=== PATIENT | male | born 1980 | race Caucasian/White ===

== ENCOUNTER 2023-01-08 15:45 | Outpatient (RCR) | payer MEDICAID, SELFPAY | END 2023-05-03 09:16 | disposition home or self-care (01) | PROVIDERS: PCP Family Medicine; Visit Provider Family Medicine | DX: M54.2 Cervicalgia (principal); S46.811A Strain of other muscles, fascia and tendons at shoulder and upper arm level, right arm, initial encounter; M25.511 Pain in right shoulder; G89.29 Other chronic pain; R29.3 Abnormal posture; Z51.89 Encounter for other specified aftercare | CPT/HCPCS: 97110; 97140; 97161 ==

== ENCOUNTER 2023-08-09 07:02 | Outpatient (CLI) | payer MEDICAID, SELFPAY ==
--- NOTE | 2023-08-09 07:15 | CRLHL7_ITS ---
For Patients: As a result of the Century Cures Act, medical imaging exams and procedure reports are released immediately into your electronic medical record. You may view this report before your referring provider. If you have questions, please contact your health care provider. INDICATION: Frontal headaches. Neurocysticercosis. TECHNIQUE: Brain MRI with contrast. The following sequences were obtained: Sagittal T1 weighted sequence. DWI and ADC mapping sequences. Axial FLAIR and RENATA T2 weighted sequences. Susceptibility weighted or GRE sequence. T1 weighted post-contrast sequence(s). 20 cc of Dotarem gadolinium based contrast agent was used. COMPARISON: Brain MRI from 01/05/2021. 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 It follows CSF on all pulse sequences. It measures 42 millimeters in AP dimension, 20 millimeters in TR dimension and 17 millimeters in CC dimension. Local mass effect upon the left greater than right olfactory gyri, as well as the left-sided supraorbital gyrus. No parenchymal brain edema. A tiny 4 millimeter T2 hypointense nodule within the inferior cyst abutting the left posterior olfactory groove is again noted. Subtle enhancement appears to be present on postcontrast imaging. No evidence of acute ischemia. No evidence of acute or chronic intracranial blood products. Minimal nonspecific FLAIR hyperintense foci scattered within the supratentorial white matter. No hydrocephalus or extra-axial collections. The pituitary gland, parasellar structures and optic chiasm are normal. Posterior fossa is normal. All the major intracranial vascular structures demonstrate normal flow-related signal. The orbital contents are normal. No calvarial or skull base marrow signal abnormality. Scattered minimal paranasal sinus mucosal thickening. No extracranial soft tissue findings. IMPRESSION: 1. Stable examination. 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 Tiny 4 millimeter nodule within the inferior portion of the cyst is unchanged as well. It does appear to exhibit subtle enhancement on today`s exam. 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 Neoplastic entities such as hemangioblastoma could also have this appearance. 2. No acute ischemia. No new lesions elsewhere within the brain. Dictated by Theron Aguirre MD @ 08/09/2023 9:45:08 AM (Electronically Signed)
== END 2023-08-09 07:03 | disposition home or self-care (01) ==
LOC: MRI 07:05
PROVIDERS: PCP Family Medicine; Visit Provider Family Medicine
DX: B69.0 Cysticercosis of central nervous system (principal); R51.9 Headache, unspecified
CPT/HCPCS: 70553; T1013; A9575

== ENCOUNTER 2023-09-10 10:22 | Emergency (ER) | payer MEDICAID, SELFPAY ==
[2023-09-10] VITALS (28 sets, daily range): BP systolic 121–166; BP diastolic 80–122; PULSE 68–185; RESP 18–22; TEMP 36.4; O2SAT 95–100; BMI 29.8
[2023-09-10] MEDS: 0.9 % SODIUM CHLORIDE 1000 ml 1,000 ML IV (11:00)
--- NOTE | 2023-09-10 11:00 | ED_ITS ---
HPI - General Adult General Chief complaint: Arrhythmia/Palpitations Stated complaint: Short of breath, fast heartbeat Time Seen by Provider: 09/10/23 10:52 History of Present Illness HPI narrative: as been dealing with headaches since june and saw dr suarez on wednesday. does have a neuro consult next week. today awoke at 0600 and felt tired, sob, mild chest pressure with a rapid heart rate. upon arrival noted to have a fib with RVR. last po was brfst at ~1000. never has had a hx of a fib. 42-year-old man presenting to the emergency department with complaint of some chest pressure and shortness of breath occurring about an hour prior to presentation. He had gone to work at [employer] and just was not feeling well. Is not reporting lightheadedness. No abdominal pain. On arrival EKG does show by my read atrial fibrillation. Nursing has already initiated IV fluids. Prior to this morning was not feeling short of breath in particular. Has not been experiencing edema. Only past medical is hypertension per his report. No personal or family history of cardiovascular disease/arrhythmias other than as prior mention. Related Data Home Medications Medication Instructions Recorded Confirmed amlodipine 5 mg tablet 5 mg PO DAILY 09/10/23 09/10/23 naproxen 500 mg tablet 500 mg PO BID 09/10/23 09/10/23 trazodone 50 mg tablet 50 mg PO QPM 09/10/23 09/10/23 Previous Rx's Medication Instructions Recorded apixaban 5 mg tablet (Eliquis) 5 mg PO BID #60 tabs 09/10/23 Allergies Allergy/AdvReac Type Severity Reaction Status Date / Time No Known Drug Allergies Allergy Verified 09/10/23 10:34 Review of Systems Status of ROS: Reports: 6 or more systems reviewed and unremarkable except as noted in History and below PFSH PFSH Social History Smoking Status: Never smoker Do you use any of these nicotine containing products: None Second hand tobacco smoke exposure: No How often do you have a drink containing alcohol: 2-4 times a month How many standard drinks containing alcohol do you have on a typical day: 5 or 6 How often do you have six or more drinks on one occasion: Weekly AUDIT-C Alcohol total score: 7 Non-prescribed substance use: denies use service: No Exam Narrative: Exam Narrative: Pleasant. Well-built. NAD but mildly anxious. Subtly labored perhaps in his breathing. Skin is warm and dry well-perfused extremities without edema. Lungs are clear. Heart is tachycardic in rate with an irregularly irregular rhythm. Abdomen is little protuberant soft nontender. Const: Vital Signs, click to edit/add: Vital Signs - 24 hr 09/10/23 10:36 09/10/23 11:03 09/10/23 11:04 Temperature 97.5 F L Pulse Rate 110 H 98 Pulse Rate [Pulse Oximeter] 152 H Respiratory Rate 22 Blood Pressure 145/112 H Blood Pressure [Ri ght Upper Arm] 126/96 H Pulse Oximetry 97 97 96 Oxygen Delivery Me thod Room Air Oxygen Flow Rate 09/10/23 11:15 09/10/23 11:24 09/10/23 11:30 Temperature Pulse Rate 108 H 93 84 Pulse Rate [Pulse Oximeter] Respiratory Rate Blood Pressure 139/102 H Blood Pressure [Ri ght Upper Arm] Pulse Oximetry 97 97 96 Oxygen Delivery Me thod Oxygen Flow Rate 09/10/23 11:31 09/10/23 11:45 09/10/23 12:00 Temperature Pulse Rate 85 89 89 Pulse Rate [Pulse Oximeter] Respiratory Rate Blood Pressure 121/80 Blood Pressure [Ri ght Upper Arm] Pulse Oximetry 95 96 97 Oxygen Delivery Me thod Oxygen Flow Rate 09/10/23 12:02 09/10/23 12:03 09/10/23 12:15 Temperature Pulse Rate 103 H 83 92 Pulse Rate [Pulse Oximeter] Respiratory Rate Blood Pressure 129/102 H Blood Pressure [Ri ght Upper Arm] Pulse Oximetry 97 96 97 Oxygen Delivery Me thod Oxygen Flow Rate 09/10/23 12:30 09/10/23 12:32 09/10/23 12:45 Temperature Pulse Rate 87 76 77 Pulse Rate [Pulse Oximeter] Respiratory Rate Blood Pressure 130/80 Blood Pressure [Ri ght Upper Arm] Pulse Oximetry 96 96 96 Oxygen Delivery Me thod Oxygen Flow Rate 09/10/23 13:00 09/10/23 13:01 09/10/23 13:15 Temperature Pulse Rate 86 78 72 Pulse Rate [Pulse Oximeter] Respiratory Rate Blood Pressure 131/97 H Blood Pressure [Ri ght Upper Arm] Pulse Oximetry 97 97 97 Oxygen Delivery Me thod Oxygen Flow Rate 09/10/23 13:30 09/10/23 13:32 09/10/23 13:45 Temperature Pulse Rate 136 H 185 H 148 H Pulse Rate [Pulse Oximeter] Respiratory Rate Blood Pressure 148/107 H Blood Pressure [Ri ght Upper Arm] Pulse Oximetry 99 99 99 Oxygen Delivery Me thod Oxygen Flow Rate 09/10/23 13:55 09/10/23 14:02 09/10/23 14:21 Temperature Pulse Rate 104 H 116 H Pulse Rate [Pulse Oximeter] Respiratory Rate Blood Pressure 166/122 H Blood Pressure [Ri ght Upper Arm] Pulse Oximetry 97 96 99 Oxygen Delivery Me thod Nasal Cannula Oxygen Flow Rate 2 09/10/23 14:30 09/10/23 15:09 09/10/23 15:15 Temperature Pulse Rate 68 69 Pulse Rate [Pulse Oximeter] 72 Respiratory Rate 18 Blood Pressure Blood Pressure [Ri ght Upper Arm] 126/81 Pulse Oximetry 100 98 98 Oxygen Delivery Me thod Nasal Cannula Oxygen Flow Rate 2 09/10/23 15:42 Temperature Pulse Rate Pulse Rate [Pulse Oximeter] 73 Respiratory Rate 20 Blood Pressure Blood Pressure [Ri ght Upper Arm] 130/93 H Pulse Oximetry 98 Oxygen Delivery Me thod Room Air Oxygen Flow Rate Documenting provider has reviewed patient's vital signs: yes Course Vital Signs Vital signs: Initial Vital Signs Temperature 97.5 F L 09/10/23 10:36 Temperature Source Temporal Artery Scan 09/10/23 10:36 Pulse Rate 152 H 09/10/23 10:36 Pulse Rhythm Irregular 09/10/23 10:36 Respiratory Rate 22 09/10/23 10:36 Blood Pressure 126/96 H 09/10/23 10:36 Blood Pressure Mean 106 H 09/10/23 10:36 Blood Pressure Position Supine 09/10/23 10:36 Pulse Oximetry 97 09/10/23 10:36 Oxygen Delivery Method Room Air 09/10/23 10:36 Vital Signs Temperature 97.5 F L 09/10/23 10:36 Pulse Rate 152 H 09/10/23 10:36 Respiratory Rate 22 09/10/23 10:36 Blood Pressure 126/96 H 09/10/23 10:36 Pulse Oximetry 97 09/10/23 10:36 Oxygen Delivery Method Room Air 09/10/23 10:36 Temperature 97.5 F L 09/10/23 10:36 Pulse Rate 73 09/10/23 15:42 Respiratory Rate 20 09/10/23 15:42 Blood Pressure 130/93 H 09/10/23 15:42 Pulse Oximetry 98 09/10/23 15:42 Oxygen Delivery Method Room Air 09/10/23 15:42 Oxygen Flow Rate 2 09/10/23 14:30 Medical Decision Making MDM Narrative Medical decision making narrative: EKG reviewed by me shows atrial fibrillation with RVR at a rate of 132. This does not look to be typical sinus tachycardia or aflutter. Initiating IV fluids will be given diltiazem. He would be a candidate for cardioversion if necessary. Did eat though at 10:00 a.m. some bread coffee. Monitored on nuclear monitoring technician. Rate did slow into the upper 70s, 80s and chest discomfort lessened. 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 Remained in atrial fibrillation. Began to have increasing chest pain with return of shortness of breath. Rate into the 150s and above at times. Blood pressures were maintained. I would consider this emergent cardioversion due to symptoms. Did consult with anesthesia asking their assistance with sedation for cardioversion in this circumstance and thankfully they were willing to assist in spite of last oral intake. Also present was respiratory therapy for airway support. See procedural note. Did discuss following this cardioversion with Cardiology. Recommending anticoagulation over the next month with George. Initiated dosing here in the emergency department. Well and easily ambulatory on departure. See patient discharge plan Medical Records Medical records reviewed: Yes I reviewed the patient's medical records Lab Data Lab results reviewed: Yes I reviewed the patient's lab results Labs: Lab Results 09/10/23 Range/Units 11:00 WBC 5.61 (4.50-11.00) K/uL RBC 5.81 (4.30-5.90) m/uL Hgb 17.0 (13.5-17.5) gm/dL Hct 50.4 (37.0-53.0) % MCV 87 (80-100) fL MCH 29 (26-34) pg MCHC 34 (32-36) gm/dL RDW Coeff of Ara 12.6 (11.5-15.5) % Plt Count 296 (140-440) K/uL Neut % (Auto) 56.1 (42.0-72.0) % Lymph % (Auto) 33.2 (20-44) % [place] % (Auto) 8.6 (0.0-11.0) % Eos % (Auto) 1.4 (0.0-7.0) % Baso % (Auto) 0.5 (0.0-3.0) % Neut # (Auto) 3.15 (1.7-7.0) K/uL Lymph # (Auto) 1.86 (0.90-2.90) K/uL [place] # (Auto) 0.50 (0.00-0.90) K/UL Eos # (Auto) 0.08 (0.00-0.50) K/uL Baso # (Auto) 0.03 (0.00-0.30) K/uL Abs Immat Gran (auto) 0.01 (0.00-0.30) K/uL Imm/Tot Granulo (auto) 0.2 % Sodium 137 (135-149) mmol/L Potassium 3.7 (3.6-5.1) mmol/L Chloride 103 (96-114) mmol/L Carbon Dioxide 24 (20-32) mmol/L Anion Gap 10 (7-15) mEq/L BUN 19 (5-24) mg/dL Creatinine 0.8 (0.5-1.5) mg/dL Estimated Creat Clear 129.33 Estimated GFR 112 ml/min Glucose 113 (60-115) mg/dL Calcium 8.9 (8.4-10.6) mg/dL Magnesium 2.0 (1.5-2.6) mg/dL C-Reactive Protein < 0.5 L (0.5-1.0) mg/dL TSH 0.724 (0.270-4.20) uIU/mL ECG Data Attestation: I personally reviewed and interpreted this ECG as follows: (1. By my read shows atrial fibrillation at a rate of 85 2. Post cardioversion showing normal sinus rate of 74. there does seem to be evidence of early repolarization here ) Critical Care Time Critical Care Time Critical Care Time: Yes Attestation: The patient required my highest level preparedness to intervene emergently and I personally spent this critical care time directly and personally managing the patient. This critical care time included: Obtaining a history; Examining the patient; Pulse oximetry; Ordering and reviewing of studies; Arranging urgent treatment with development of a management plan; Evaluation of patients response to treatment; Frequent reassessment discussions with other providers. This critical care time was performed to assess and manage the high probability of imminent life-threatening deterioration that could result in multiorgan failure. It was exclusive of separate billable procedures and treating other patients and teaching time. Total Critical Care Time in Minutes: 45 Discharge Plan Discharge Clinical Impression: Atrial fibrillation with rapid ventricular response Patient Disposition: Home w/ Parent or Adult Condition: Improved Additional Instructions: Recommendations from cardiology are to take anticoagulation for 1 month in the form of Eliquis. There is usually a one-month coupon available either online or with pharmacy. Return for increasing and persistent chest pain, shortness of breath, uncontrolled heart rate. I would follow-up with your primary care provider in a couple of weeks. You probably do not need to see Cardiology unless this atrial fibrillation happens again. Prescriptions: New Eliquis 5 mg tablet 5 mg PO BID Qty: 60 0RF No Action amlodipine 5 mg tablet 5 mg PO DAILY trazodone 50 mg tablet 50 mg PO QPM naproxen 500 mg tablet 500 mg PO BID Follow Up/Referrals: Davi Suarez MD [Primary Care Provider] - Stand Alone Forms: [employer] Info Instructions Procedures Additional Procedures Procedure name: Electrical cardioversion Pre procedure diagnosis: Symptomatic atrial fibrillation with RVR Post procedure diagnosis: Symptomatic atrial fibrillation with RVR Written consent by: patient Site marking: not applicable Verification/time out: correct patient and correct procedure Estimated blood loss (if any): none Conclusion: patient tolerated procedure Additional comments: Informed consent obtained for electrical cardioversion due to symptomatic atrial fibrillation with rapid ventricular response. Assisted by nurse machine shop worker with propofol sedation. Assisted by respiratory therapy and nursing staff. Provider Dr. Byrne Was appropriately sedated sink cardioversion at 200 joules. Shocked once. Returned to sinus rhythm. Monitored until fully alert and easily supporting own airway. No complications.
[2023-09-10] MEDS: dilTIAZem 5 MG/ML inj 20 MG IVP (11:24)
[2023-09-10 11:28] LABS: Basophils Absolute Auto 0.03 K/uL (0.00-0.30); Basophils Percent Auto 0.5 % (0.0-3.0); Eosinophils Absolute Auto 0.08 K/uL (0.00-0.50); Eosinophils Percent Auto 1.4 % (0.0-7.0); Hematocrit 50.4 % (37.0-53.0); Immature Granulocytes Abs Auto 0.01 K/uL (0.00-0.30); Immature Granulocytes Pct Auto 0.2 %; Lymphocytes Absolute Auto 1.86 K/uL (0.90-2.90); Lymphocytes Percent Auto 33.2 % (20-44); Mean Corpuscular HGB Conc 34 gm/dL (32-36); Mean Corpuscular Hemoglobin 29 pg (26-34); Mean Corpuscular Volume 87 fL (80-100); Monocytes Percent Auto 8.6 % (0.0-11.0); Neutrophils Absolute Auto 3.15 K/uL (1.7-7.0); Neutrophils Percent Auto 56.1 % (42.0-72.0); Platelet Count* 296 K/uL (140-440); RDW Coefficient of Variation % 12.6 % (11.5-15.5); Red Blood Count 5.81 m/uL (4.30-5.90); White Blood Count* 5.61 K/uL (4.50-11.00)
[2023-09-10 11:43] LABS: Chloride* 103 mmol/L (96-114); Potassium* 3.7 mmol/L (3.6-5.1); Sodium* 137 mmol/L (135-149)
[2023-09-10 11:45] LABS: Slide Review Reflex No
[2023-09-10 11:46] LABS: Anion Gap 10 mEq/L (7-15); Blood Urea Nitrogen* 19 mg/dL (5-24); Carbon Dioxide* 24 mmol/L (20-32); Creatinine* 0.8 mg/dL (0.5-1.5); Est. Creatinine Clearance* 129.33; Estimated Glomerular Filt Rate 112 ml/min; Glucose* 113 mg/dL (60-115)
[2023-09-10 11:47] LABS: Calcium* 8.9 mg/dL (8.4-10.6)
[2023-09-10 12:08] LABS: C Reactive Protein* < 0.5 mg/dL (0.5-1.0)
[2023-09-10 12:38] LABS: Thyroid Stimulating Hormone* 0.724 uIU/mL (0.270-4.20)
--- NOTE | 2023-09-10 15:00 | ED.NURSE ---
vital signs during cardioversion attached to cardioversion sheets.
--- NOTE | 2023-09-10 15:00 | ED.NURSE ---
cardioversion done. Pt back in to normal sinus rythm.
--- NOTE | 2023-09-10 15:06 | W.ANESCHARGE ---
Anesthesia Charges Start Date/Time Anesthesia Start Date: 09/10/23 Anesthesia Start Time: 14:15 Stop Date/Time Anesthesia Stop Date: 09/10/23 Anesthesia Stop Time: 14:30
== END 2023-09-10 15:30 | disposition home or self-care (01) ==
PROVIDERS: Emergency Provider Family Medicine; PCP Family Medicine
DX: I48.20 Chronic atrial fibrillation, unspecified (principal)
CPT/HCPCS: 00410; 36415; 80048; 83735; 84443; 85025; 86140; 92960; 93005; 99284; 99291; J7030

== ENCOUNTER 2023-10-27 20:23 | Outpatient (CLI) | payer MEDICAID, SELFPAY | END 2023-10-27 20:24 | disposition home or self-care (01) | LOC: SLEEP 20:24 | PROVIDERS: PCP Family Medicine; Visit Provider Internal Medicine | DX: G47.33 Obstructive sleep apnea (adult) (pediatric) (principal) | CPT/HCPCS: 95810 ==

== ENCOUNTER 2024-03-13 21:36 | Emergency (ER) | payer MEDICAID, SELFPAY ==
[2024-03-13 21:41] VITALS: BP 133/77; PULSE 76; RESP 20; TEMP 36.9; O2SAT 96; BMI 29.0
--- NOTE | 2024-03-13 22:06 | ED_ITS ---
HPI - Allergic Reaction General Chief complaint: Allergic Reaction Stated complaint: Allergic to medication his [id number]-Gcqi Time Seen by Provider: 03/13/24 21:42 History of Present Illness HPI narrative: This 43-year-old male comes in reporting some swelling in his lower lip that be taylor this morning upon awakening. He wonders if it might be a reaction to Augmentin which she has been taking for 2 days for a strep infection. He was at an urgent care clinic in the [place] area a couple days ago and had a positive strep test. At that time he received an IM injection of steroid and a prescription for Augmentin. He does not think that he has taken Augmentin in the past. He does not report any shortness of breath. He does not have any rash or other areas of swelling or reaction. He is taking lisinopril. Related Data Home Medications Medication Instructions Recorded Confirmed amlodipine 5 mg tablet 5 mg PO DAILY 09/10/23 09/10/23 naproxen 500 mg tablet 500 mg PO BID 09/10/23 03/13/24 trazodone 50 mg tablet 50 mg PO QPM 09/10/23 09/10/23 amoxicillin 875 mg-potassium 1 tab PO BID 03/13/24 03/13/24 clavulanate 125 mg tablet lisinopril 10 mg tablet 10 mg PO DAILY 03/13/24 03/13/24 Allergies Allergy/AdvReac Type Severity Reaction Status Date / Time No Known Drug Allergies Allergy Verified 03/13/24 21:44 Review of Systems Status of ROS Reports: 10 or more systems reviewed and unremarkable except as noted in History and below Narrative Constitutional: No fevers, no weight gain or loss. Eyes: No discharge. No vision changes. HENT: No congestion, no ear pain. He still has report of sore throat. Cardiovascular: No chest pain, no palpitations. Respiratory: No shortness of breath, no wheezes, no cough. Gastrointestinal: No abdominal pain, no vomiting, no diarrhea. Genitourinary: No dysuria, no hematuria. Musculoskeletal: Normal range of motion. Skin: No rashes, no pruritis. He reports swelling in his lower lip. Neurological: No dizziness, weakness, sensory change, speech change. Endo/Heme/Allergies: No bruising or bleeding. No polydipsia. Pysch: no suicidality, no anxiety, no insomnia. All other systems reviewed and are negative. PFSH PFSH Social History Smoking Status: Never smoker Do you use any of these nicotine containing products: None Second hand tobacco smoke exposure: No How often do you have a drink containing alcohol: 2-4 times a month How many standard drinks containing alcohol do you have on a typical day: 5 or 6 How often do you have six or more drinks on one occasion: Weekly AUDIT-C Alcohol total score: 7 Non-prescribed substance use: denies use service: No Exam Narrative: Exam Narrative: Constitutional: Well-developed, well-nourished, no acute distress. HEENT: Normocephalic, atraumatic. Oropharynx has moderate bilateral tonsillar hypertrophy without exudate. There is no muffled voice or trismus. His lower lip is mildly edematous. Neck: Normal range of motion. Nontender. Supple. Heart: Regular. No murmurs. Normal rate. Intact distal pulses. Lungs: Clear to auscultation. No chest discomfort. No wheezes, rhonchi, or rales. Abdomen: Normal bowel sounds. Nontender. No rebound tenderness. Genitalia: Deferred. Back: No midline tenderness. Normal range of motion. Extremities: Normal range of motion. No injury. Skin: Intact. No rash. Warm. No erythema or pallor. Neurologic: No altered sensation. No weakness. Alert and oriented. Psychiatric: No suicidality. No anxiety or depression. No insomnia. Nursing notes and vitals signs are reviewed. Const: Vital Signs, click to edit/add: Vital Signs - 24 hr 03/13/24 21:41 Temperature 98.5 F Pulse Rate [Pulse Oximeter] 76 Respiratory Rate 20 Blood Pressure [Ri t Upper Arm] 133/77 Pulse Oximetry 96 Oxygen Delivery Me thod Room Air Course Vital Signs Vital signs: Initial Vital Signs Temperature 98.5 F 03/13/24 21:41 Temperature Source Temporal Artery Scan 03/13/24 21:41 Pulse Rate 76 03/13/24 21:41 Pulse Strength 3+ Normal 03/13/24 21:41 Respiratory Rate 20 03/13/24 21:41 Blood Pressure 133/77 03/13/24 21:41 Blood Pressure Mean 95 03/13/24 21:41 Blood Pressure Position Sitting 03/13/24 21:41 Pulse Oximetry 96 03/13/24 21:41 Oxygen Delivery Method Room Air 03/13/24 21:41 Vital Signs Temperature 98.5 F 03/13/24 21:41 Pulse Rate 76 03/13/24 21:41 Respiratory Rate 20 03/13/24 21:41 Blood Pressure 133/77 03/13/24 21:41 Pulse Oximetry 96 03/13/24 21:41 Oxygen Delivery Method Room Air 03/13/24 21:41 Temperature 98.5 F 03/13/24 21:41 Pulse Rate 76 03/13/24 21:41 Respiratory Rate 20 03/13/24 21:41 Blood Pressure 133/77 03/13/24 21:41 Pulse Oximetry 96 03/13/24 21:41 Oxygen Delivery Method Room Air 03/13/24 21:41 MDM - Allergic Reaction MDM Narrative Medical decision making narrative: This patient comes in thinking that he is having a reaction to Augmentin. His primary symptom is swelling of his lower lip only. He does not think that he has taken Augmentin in the past. I explained that this is a medicine that is typically not used to treat strep infection but it would certainly work and he has taken it for a couple days. I advised him to discontinue Augmentin and it seems best not to restart some other antibiotic as evidence is showing that even with untreated strep infection most people get better without such and intervention. 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 He does not have any airway compromise. I explained that we do not have any testing that can clarify what is the cause of his symptoms. I advised him also to discontinue lisinopril for few days and follow up with his primary physician to consider some alternative treatment or restart lisinopril after symptoms resolve and see if they recur again. The patient did receive an oral dose of dexa methasone here. Discharge Plan Discharge Clinical Impression: Allergic reaction Patient Disposition: Home, Self-Care Additional Instructions: Hold Augmentin and lisinopril. Follow-up with primary physician to review ongoing management of blood pressure. Return if symptoms are persistent or wors ening. Prescriptions: No Action lisinopril 10 mg tablet 10 mg PO DAILY amoxicillin-pot clavulanate 875-125 mg tablet 1 tab PO BID amlodipine 5 mg tablet 5 mg PO DAILY trazodone 50 mg tablet 50 mg PO QPM naproxen 500 mg tablet 500 mg PO BID Follow Up/Referrals: Davi Fonseca MD [Primary Care Provider] - Stand Alone Forms: [employer] Info Instructions
[2024-03-13] MEDS: dexAMETHasone 10 MG/ML inj PO (22:13)
--- NOTE | 2024-03-13 22:29 | PC.NURSE ---
DC instructions reviewed with patient and his , no questions. patient airway clear and patent, RR even and unlabored at time of DC. patients belongings sent with patient.
== END 2024-03-13 22:30 | disposition home or self-care (01) ==
PROVIDERS: Emergency Provider Emergency Medicine Emergency Medical Services; PCP Family Medicine
DX: K13.0 Diseases of lips (principal); T36.0X5A Adverse effect of penicillins, initial encounter
CPT/HCPCS: 99283; 99284; J1100

== ENCOUNTER 2024-11-24 18:45 | Outpatient (CLI) | payer MEDICAID, SELFPAY | END 2024-11-24 18:46 | disposition home or self-care (01) | PROVIDERS: PCP Family Medicine | DX: R10.9 Unspecified abdominal pain (principal) | CPT/HCPCS: 80076; 83690 ==

== ENCOUNTER 2025-09-17 20:22 | Emergency (ER) | payer MEDICAID, SELFPAY ==
--- OUTSIDE RECORDS SUMMARY | 2025-09-17 20:24 | XMS_ITS | Clinical Summary ---
Author Organization [facility] Address [address] [place] [address] Care Team Providers Care Door Clamper Name Role Phone Davi Fonseca MD Primary Care Provider [phone] Allergies Active Allergy Reactions Criticality Noted Date Comments Lisinopril Edema 03/15/2024 Lip Swelling. Medications omeprazole 20 mg tabletIndicatio ns:Abdominal pain, RUQ (right upper quadrant) Take 1 Tablet (20 mg) by mouth once daily before a meal. 90 Tablet 3 5 Active Additional Information Patient taking differently:20 mg OralDAILY PRN, GI Upset, Reported on 07/03/2025 gabapentin (NEURONTIN) 100 mg capsuleIndicati ons:Cervical myofascial pain syndrome Take 1-2 Capsules (100-200 mg) by mouth at bedtime. 24 Capsule 2 5 Active cyclobenzaprine (FLEXERIL) 10 mg tabletIndicatio ns:Neck pain, chronic Take 1 Tablet (10 mg) by mouth at bedtime if needed for Muscle Spasm. 30 Tablet 3 5 Active amLODIPine (NORVASC) 5 mg tabletIndicatio ns:Essential hypertension,HT N (hypertension) Take 1 Tablet (5 mg) by mouth once daily. 90 Tablet 3 5 Active chlorthalidone (HYGROTON) 25 mg tabletIndicatio ns:Essential hypertension,HT N (hypertension) Take 1 Tablet (25 mg) by mouth once daily. 90 Tablet 3 5 Active potassium chloride (KLOR-CON M20) 20 mEq extended-releas e tablet (part/cryst)Ind ications:Essent ial hypertension,HT N (hypertension) Take 1 Tablet (20 mEq) by mouth once daily. 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 His headaches resolved. Fatty liver 12/02/2019 Overview (12/02/2019): Diagnosed on ultrasound. In 11/2019. Repeat ultrasound in one year. Davi Fonseca MD signed electronically .................... 12/02/2019 Plantar fasciitis, bilateral 01/29/2016 HTN (hypertension) 01/01/2016 Prepatellar bursitis 05/30/2014 Sprain of medial collateral ligament of knee Encounters Date Type Department Care Team Description 09/11/2025 8:05 AM CDT Office Visit [facility] [address] [place] [address] Alexa Hoang, Musculoskeletal Problem (Bilateral shoulder and neck pain, would like trigger point injections again as they helped last time ) 09/11/2025 Travel 07/05/2025 Telephone [facility] [address] [place] [address] Davi Fonseca MD Results 07/03/2025 10:00 AM CDT Ancillary Procedure [facility] [address] [place] [address] 07/03/2025 7:30 AM CDT Office Visit [facility] [address] [place] [address] Davi Fonseca MD Medication Management (Routine follow up); Immunization/Injection 07/03/2025 Travel from Last 3 Months Immunizations Immunization Administration Dates Next Due COVID-19 vaccine (M[employer] NTech 30mcg/0.3mL) 12YO+ BIVALENT PF, MDV 12/28/2022 Influenza, IIV3 (Age 6-35 mos) 10/30/2010 Influenza, IIV3 (Age >=3 years) 12/05/19 14,09/28/2007,09/07/2006,2004,09/15/2002 Influenza, IIV4 07/28/2023, 2,01/03/2021,2017,11/03/2017 Tdap 07/03/2025,11/27/2013,10/30/2010 Family History Medical History Relation Name Comments Good Health Father Heart attack Maternal Uncle of this at 45; nonsmoker Hypertension Mother Relation Name Status Comments Father Maternal Uncle Mother Social History Tobacco Use Types Packs/Day Years Used Date Smoking Tobacco: Never Passive Smoke Exposure: Never Smokeless Tobacco: Never Tobacco Cessation:Counseling Given: Yes Alcohol Use Standard Drinks/Week Comments Yes 0 (1 standard drink = 0.6 oz pur e alcohol) PHQ-2 Answer Date Recorded PHQ-2 TOTAL SCORE 0 07/03/2025 Social Connections Answer Date Recorded Do you often feel lonely or isolated from those around you? 0 04/04/2024 Alcohol Use Answer Date Recorded How often do you have a drink containing alcohol ? 2 09/11/2025 How many drinks containing a lcohol do you have on a typical day when you are drinking? 0 09/11/2025 How often do you have five or more drinks on one occasion? 0 09/11/2025 Financial Resource Strain Answer Date R ecorded Difficulty of Paying Living Expenses 3 04/04/2024 Difficulty of Paying Living Expenses Not on file 04/04/2024 Food Insecurity Answer Date Recorded Do you worry your food will run out before you are able to buy more? 1 04/04/2024 Transportation Needs Answer Date Record ed Does lack of transportation keep you from medica l appointments? 1 04/04/2024 Does lack of transportation keep you from work, meetings or getting things that you need? 1 04/04/2024 Housing Stability Answer Date Recorded What is your housing situation today? 1 04/04/2024 Utilities Answer Date Recorded Do you have trouble paying f or utilities (for example, heat, electricity, water, phone)? 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 Gender Identity Not on file Sexual Orientation Not on file Occupation Industry Job Start Date Job End Date [employer] Not on file Not on file Not on file Obstetrics History Last Filed Vital Signs Vital Sign Reading Time Taken Comments Blood Pressure 146/95 09/11/2025 8:14 AM CDT Pulse 60 09/11/2025 8:14 AM CDT Temperature 36.4 C (97.6 F) 07/03/2025 7:36 AM CDT Respiratory Rate - - Oxygen Saturation 98% 09/11/2025 8:14 AM CDT Inhaled Oxygen Concentration - - Weight 102.2 kg (225 lb 6.4 oz) 09/11/2025 8:14 AM CDT Height 183.8 cm (6' 0.36) 08/07/2024 9:53 AM CD T Body Mass Index 30.26 08/07/2024 9:53 AM CDT Plan of Treatment Health Maintenance Due Date Last Done Comments HIV for age 15-65 1993 Hepatitis C screening for ag e 18-79 1996 Hepatitis B series for 19+ ( 1 of 3 - 19+ 3-dose series) 1997 Pneumococcal series for age 6-49 (1 of 2 - PCV) 1997 Influenza Vaccine (#1) 2025 , 11/09/2022, 01/03/2021, Additional history exists BMI (ht and wt on same day) for age 18+ 08/07/2025 08/07/2024, 06/05/2024, 03/02/2024, Additional history exists Lipids for age 45-75 12/23/2025 12/23/2020, 11/24/2019, 10/27/2017, Additional history exists Depression screening for age 12+ 07/03/2026 07/03/2025, 12/31/2022, 12/31/2022, Additional history exists Colonoscopy through age 75 01/23/2032 01/22/2025 Tetanus booster 07/03/2035 07/03/2025, 11/15, 10/30/2010 RSV vaccine for adults or (1 - 1-dose 75+ series) 2053 Procedures Procedure Name Priority Date/Time Associated Diagnosis Comments CT ABDOMEN PELVIS STONE PROTOCOL WO ZEINA 07/03/2025 8:44 AM CDT Acute right flank pain HEPATIC FUNCTION PANEL Add On 07/03/2025 8:33 AM CDT Acute right flank pain CBC WITH AUTO DIFFERENTIAL Routine 07/03/2025 8:33 AM CDT Acute right flank pain URINE CULTURE Routine 07/03/2025 8:33 AM CDT Acute right flank pain URINALYSIS MICROSCOPIC Routine 07/03/2025 8:33 AM CDT Acute right flank pain URINALYSIS MACROSCOPIC - [facility] ONLY POC DIP ([facility]) Routine 07/03/2025 8:33 AM CDT Acute right flank pain CBC WITH AUTO DIFFERENTIAL Routine 07/03/2025 8:33 AM CDT Acute right flank pain BASIC METABOLIC PANEL Routine 07/03/2025 8:33 AM CDT HTN (hypertension) COLONOSCOPY SCREENING Routine 01/22/2025 12:00 AM CDT Screening for colon cancer LIPID PANEL W REFLEX MEASURED LDL Routine 12/23/2020 9:22 AM [employer] BONDING 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 No discrete acute process in the abdomen or pelvis. No nephrolithiasis, hydroureteronephrosis, or obstruction. 2. Hepatic steatosis with areas of geographic steatosis. Please note that all CT scans at this facility use dose modulation, iterative reconstruction, and/or weight-based dosing when appropriate to reduce radiation dose to as low as reasonably achievable. Dictated by Sunny Martinez MD @ 07/03/2025 9:29:58 AM (Electronically Signed) Narrative 07/03/2025 9:29 AM CDT For Patients: As a result of the Cures Act, medical imaging exams and procedure reports are released immediately into your electronic medical record. You may view this report before your referring provider. If you have questions, please contact your health care provider. INDICATION: .Acute right flank painAbdominal/flank pain, stone suspected TECHNIQUE: CT abdomen and pelvis without contrast. COMPARISON: November 2024. FINDINGS: Lower chest: Motion. ABDOMEN: Liver: Geographic hepatic steatosis. Areas sparing abutting the gallbladder. Gallbladder and biliary: Normal gallbladder without radiopaque stone. Normal caliber bile ducts. Spleen: Normal size and attenuation. Pancreas: The noncontrast pancreas is homogeneous in attenuation without peripancreatic inflammatory changes or ductal dilatation. Adrenal glands: Normal adrenal glands. Kidneys and ureters: Normal attenuation. No radio-opaque calculi. No hydroureteronephrosis. Right renal cyst. GI tract: The stomach is relatively decompressed. Normal caliber small and large bowel loops. Appendix is not definitively visualized. Vascular structures: Normal caliber abdominal aorta. Lymph nodes: No lymphadenopathy in the abdomen or pelvis by size criteria. Peritoneum: No free air, free fluid, or focal drainable fluid collection. PELVIS: Genitourinary system: Urinary bladder is relatively decompressed. Normal-sized prostate SKELETAL STRUCTURES AND SOFT TISSUES: No suspicious lytic or blastic lesions. Procedure Note Sunny Martinez MD - 07/03/2025 For Patients: As a result of the Cures Act, medical imagingexams and procedure reports are released immediately into your electronicmedical record. You may view this report before your referring provider.If you have questions, please contact your health care provider. INDICATION: .Acute right flank painAbdominal/flank pain, stone suspected TECHNIQUE: CT abdomen and pelvis without contrast. COMPARISON: November 2024. FINDINGS: Lower chest: Motion. ABDOMEN: Liver: Geographic hepatic steatosis. Areas sparing abutting thegallbladder. Gallbladder and biliary: Normal gallbladder without radiopaque stone.Normal caliber bile ducts. Spleen: Normal size and attenuation. Pancreas: The noncontrast pancreas is homogeneous in attenuation withoutperipancreatic inflammatory changes or ductal dilatation. Adrenal glands: Normal adrenal glands. Kidneys and ureters: Normal attenuation. No radio-opaque calculi. Nohydroureteronephrosis. Right renal cyst. GI tract: The stomach is relatively decompressed. Normal caliber small andlarge bowel loops. Appendix is not definitively visualized. Vascular structures: Normal caliber abdominal aorta. Lymph nodes: No lymphadenopathy in the abdomen or pelvis by sizecriteria. Peritoneum: No free air, free fluid, or focal drainable fluidcollection. PELVIS: Genitourinary system: Urinary bladder is relatively decompressed.Normal-sized prostate SKELETAL STRUCTURES AND SOFT TISSUES: No suspicious lytic or blasticlesions. IMPRESSION: 1. No discrete acute process in the abdomen or pelvis. No nephrolithiasis,hydroureteronephrosis, or obstruction. 2. Hepatic steatosis with areas of geographic steatosis. Please note that all CT scans at this facility use dose modulation,iterative reconstruction, and/or weight-based dosing when appropriate toreduce radiation dose to as low as reasonably achievable. Dictated by Sunny Martinez MD @ 07/03/2025 9:29:58 AM (Electronically Signed) us Davi Fonseca MD CT Final Resu lt * (ABNORMAL) URINALYSIS [facility] ONLY POC DIP ([facility]) (07/03/2025 8:33 AM CDT) SPECIFIC GRAVITY > OR = 1.030 1.001 - 1.035 07/03/2025 8:45 AM CDT [facility] Comment: Specific Wylie values resulted are outside the analytical measurement range of this device. Recommend repeat/additional testing as clinically indicated. PROTEIN NEGATIVE NEGATIVE 07/03/2025 8:45 AM CDT [facility] GLUCOSE NEGATIVE NEGATIVE 07/03/2025 8:45 AM CDT [facility] KETONES NEGATIVE NEGATIVE 07/03/2025 8:45 AM CDT [facility] BILIRUBIN NEGATIVE NEGATIVE 07/03/2025 8:45 AM CDT [facility] OCCULT BLOOD TRACE(A) NEGATIVE 07/03/2025 8:45 AM CDT [facility] NITRITE NEGATIVE NEGATIVE 07/03/2025 8:45 AM CDT [facility] PH 5.5 5.0 - 8.0 07/03/2025 8:45 AM CDT [facility] LEUKOCYTE ESTERASE NEGATIVE NEGATIVE 07/03/2025 8:45 AM CDT [facility] Urine URINE SPECIMEN / Unknown Non-Blood / Unknown 07/03/2025 8:33 AM CDT 07/03/2025 8:33 AM CDT us Davi Fonseca MD URINE Final Resu lt [facility] [address] [address], [place] [phone] [facility] [address] [place] [address], [place] [phone] * (ABNORMAL) CBC WITH AUTO DIFFERENTIAL (07/03/2025 8:33 AM CDT) WHITE BLOOD CELL COUNT 5.8 3.8 - 10.8 Thousand/ uL 07/04/2025 2:55 AM CDT [facility] RED BLOOD CELL COUNT 5.65 4.20 - 5.80 Million/u L 07/04/2025 2:55 AM CDT [facility] HEMOGLOBIN 17.2(H) 13.2 - 17.1 g/dL 07/04/2025 2:55 AM CDT [facility] HEMATOCRIT 50.8(H) 38.5 - 50.0 % 07/04/2025 2:55 AM CDT [facility] MCV 89.9 80.0 - 100.0 fL 07/04/2025 2:55 AM CDT [facility] MCH 30.4 27.0 - 33.0 pg 07/04/2025 2:55 AM CDT [facility] MCHC 33.9 32.0 - 36.0 g/dL 07/04/2025 2:55 AM CDT [facility] Comment: For adults, a slight decrease in the calculated MCHC value (in the range of 30 to 32 g/dL) is most likely not clinically significant; however, it should be interpreted with caution in correlation with other red cell parameters and the patient's clinical condition. RDW 13.2 11.0 - 15.0 % 07/04/2025 2:55 AM CDT [facility] PLATELET COUNT 303 140 - 400 Thousand/ uL 07/04/2025 2:55 AM CDT [facility] MPV 10.5 7.5 - 12.5 fL 07/04/2025 2:55 AM CDT [facility] NEUTROPHILS 53.6 % 07/04/2025 2:55 AM CDT [facility] LYMPHOCYTES 34.0 % 07/04/2025 2:55 AM CDT [facility] MONOCYTES 9.3 % 07/04/2025 2:55 AM CDT [facility] EOSINOPHILS 2.2 % 07/04/2025 2:55 AM CDT [facility] BASOPHILS 0.9 % 07/04/2025 2:55 AM CDT [facility] ABSOLUTE NEUTROPHILS 3109 1500 - 7800 cells/uL 07/04/2025 2:55 AM CDT [facility] ABSOLUTE LYMPHOCYTES 1972 850 - 3900 cells/uL 07/04/2025 2:55 AM CDT [facility] ABSOLUTE MONOCYTES 539 200 - 950 cells/uL 07/04/2025 2:55 AM CDT [facility] ABSOLUTE EOSINOPHILS 128 15 - 500 cells/uL 07/04/2025 2:55 AM CDT [facility] ABSOLUTE BASOPHILS 52 0 - 200 cells/uL 07/04/2025 2:55 AM CDT [facility] Blood BLOOD SPECIMEN / Unknown [facility] / Unknown 07/03/2025 8:33 AM CDT 07/03/2025 8:33 AM CDT us Davi Fonseca MD HEMATOLOGY Final Resu lt [facility] [address] [place] [address], [place] [phone] * URINALYSIS MICROSCOPIC (07/03/2025 8:33 AM CDT) RBC 0-2 0-2, None Seen /HPF 07/03/2025 2:53 PM CDT [facility] WBC 0-2 0-2, 3-5, None Seen /HPF 07/03/2025 2:53 PM CDT [facility] BACTERIA None Seen None Seen, Rare, Few Bacteria/ HPF 07/03/2025 2:53 PM CDT [facility] EPITHELIAL CELLS None Seen None Seen, Few Epi/HPF 07/03/2025 2:53 PM CDT [facility] HYALINE CASTS 0-2 0-2, 3-5 /LPF 07/03/2025 2:53 PM CDT [facility] Urine URINE SPECIMEN / Unknown Non-Blood / Unknown 07/03/2025 8:33 AM CDT 07/03/2025 8:33 AM CDT Davi Fonseca MD URINE Final Resu lt Performing Organization Address City/[facility]/ZIP Co de Phone Number [facility] [address] [place] [address], [place] * URINE CULTURE (07/03/2025 8:33 AM CDT) CULTURE No growth (<1,000 CFU/mL) 07/04/2025 3:17 PM CDT [facility] Urine URINE SPECIMEN / Unknown Non-Blood / Unknown 07/03/2025 8:33 AM CDT 07/03/2025 8:33 AM CDT Davi Fonseca MD MICROBIOLOGY Final Resu lt [facility] [address] [place] [address], [place] * (ABNORMAL) LIVER PANEL (HEPATIC FUNCTION PANEL) (07/03/2025 8:33 AM CDT) ALBUMIN 4.5 3.6 - 5.1 g/dL 07/04/2025 5:02 AM CDT [facility] PROTEIN, TOTAL 7.4 6.1 - 8.1 g/dL 07/04/2025 5:02 AM CDT [facility] BILIRUBIN, TOTAL 0.5 0.2 - 1.2 mg/dL 07/04/2025 5:02 AM CDT [facility] BILIRUBIN, DIRECT 0.1 < OR = 0.2 mg/dL 07/04/2025 5:02 AM CDT [facility] BILIRUBIN, INDIRECT 0.4 0.2 - 1.2 mg/dL (calc) 07/04/2025 5:02 AM CDT [facility] ALKALINE PHOSPHATASE 68 36 - 130 U/L 07/04/2025 5:02 AM CDT [facility] ALT 48(H) 9 - 46 U/L 07/04/2025 5:02 AM CDT [facility] AST 25 10 - 40 U/L 07/04/2025 5:02 AM CDT [facility] GLOBULIN 2.9 1.9 - 3.7 g/dL (calc) 07/04/2025 5:02 AM CDT [facility] ALBUMIN/GLOBULIN RATIO 1.6 1.0 - 2.5 (calc) 07/04/2025 5:02 AM CDT [facility] Blood BLOOD SPECIMEN / Unknown [facility] / Unknown 07/03/2025 8:33 AM CDT 07/03/2025 8:33 AM CDT us Davi Fonseca MD CHEMISTRY Final Resu lt [facility] [place] [address] [address], * BASIC METABOLIC PANEL (07/03/2025 8:33 AM CDT) SODIUM 138 135 - 146 mmol/L 07/04/2025 4:49 AM CDT [facility] POTASSIUM 4.3 3.5 - 5.3 mmol/L 07/04/2025 4:49 AM CDT [facility] CARBON DIOXIDE 27 20 - 32 mmol/L 07/04/2025 4:49 AM CDT [facility] GLUCOSE 98 65 - 99 mg/dL 07/04/2025 4:49 AM CDT [facility] Comment: Fasting reference interval CALCIUM 9.8 8.6 - 10.3 mg/dL 07/04/2025 4:49 AM CDT [facility] CREATININE 0.98 0.60 - 1.29 mg/dL 07/04/2025 4:49 AM CDT [facility] BUN/CREATININE RATIO SEE NOTE: 6 - (calc) 07/04/2025 4:49 AM CDT [facility] Comment: Not Reported: BUN and Creatinine are within reference range. EGFR 96 > OR = 60 mL/min/1. 73m2 07/04/2025 4:49 AM CDT [facility] UREA NITROGEN (BUN) 17 7 - 25 mg/dL 07/04/2025 4:49 AM CDT [facility] ELECTROLYTE BALANCE 12 7 - 17 mmol/L (calc) 07/04/2025 4:49 AM CDT [facility] CHLORIDE 99 98 - 110 mmol/L 07/04/2025 4:49 AM CDT [facility] Blood BLOOD SPECIMEN / Unknown [facility] Collect / Unknown 07/03/2025 8:33 AM CDT 07/03/2025 8:33 AM CDT Davi Fonseca MD CHEMISTRY Final Resu lt [facility] [place] [address] [place] [address], [place] [phone] * COLONOSCOPY SCREENING [[id number]] (01/22/2025 12:00 AM CDT) Aayush Meléndez MD GI PROCEDURE ORD Final Res ult * LIPID PANEL W REFLEX MEASURED LDL (12/23/2020 9:22 AM F[employer] 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 TRIGLYCERIDES 132 <150 mg/dL 12/23/2020 6:07 PM [employer] B[employer]ING MACHINE TENDER [facility] HDL CHOLESTEROL 54 >40 mg/dL 6:07 PM [employer] B[employer]ING MACHINE TENDER [facility] NON-HDL CHOLESTEROL 143 <145 mg/dl 12/23/2020 6:07 PM [employer] B[employer]ING MACHINE TENDER [facility] CHOL/HDL RATIO 3.65 <4.50 12/23/2020 6:07 PM [employer] B[employer]ING MACHINE TENDER [facility] LDL CHOLESTEROL 117 <=130 mg/dL 12/23/2020 6:07 PM [employer] B[employer]ING MACHINE TENDER [facility] PROVIDER ORDERED STATUS RANDOM 12/23/2020 6:07 PM [employer] B[employer]ING MACHINE TENDER [facility] Blood BLOOD SPECIMEN / Unknown Venipuncture / Unknown 12/23/2020 9:22 AM [employer] B[employer]ING MACHINE TENDER 12/23/2020 9:22 AM [employer] B[employer]ING MACHINE TENDER us Davi Fonseca MD CHEMISTRY Final Resu lt [facility] [address] [place] [address], from Last 3 Months or Most Recently Relevant to Health Maintenance Insurance [facility] [place] Care Teams Door Clamper Relationship Specialty Start Date End Date Davi Fonseca MD [facility] [place] [address] PCP - General Family Practice 02/11/15
[2025-09-17 20:29] VITALS: BP 169/99; PULSE 60; RESP 18; TEMP 36.8; O2SAT 97; BMI 29.8
--- NOTE | 2025-09-17 22:35 | CRLHL7_ITS ---
For Patients: As a result of the Cures Act, medical imaging exams and procedure reports are released immediately into your electronic medical record. You may view this report before your referring provider. If you have questions, please contact your health care provider. INDICATION: Trauma. FINDINGS: Three views of the left index finger are submitted without comparison The visualized osseous structures of the left index finger appear intact. No suspicious radiodense foreign body or free air seen within the soft tissues of the left index finger. IMPRESSION: No convincing radiographic evidence of suspicious osseous injury within the visualized left index finger. Dictated by Frank Harrington MD @ 09/17/2025 10:58:30 PM (Electronically Signed)
--- NOTE | 2025-09-17 22:36 | ED.WOUNDLAC ---
HPI - Wound/Laceration General Date Seen: 09/18/25 Chief Complaint: Laceration/Wound Stated Complaint: Injured finger on left hand Time Seen by Provider: 09/17/25 22:30 Source: patient, family and RN notes reviewed Mode of arrival: ambulatory Limitations: no limitations History of Present Illness HPI narrative: Patient is a very pleasant 44-year-old up-to-date tetanus who comes to the emergency room for evaluation of a laceration over the left index finger with an Axe. [place] area where he will be going hunting and hit his left index finger on the PIP. He is still able to move his finger. Bleeding has been controlled. He believes he needs sutures. Related Data Home Medications ?Medication ?Instructions ?Recorded ?Confirmed amlodipine 5 mg tablet 5 mg PO DAILY 09/10/23 11/24/24 trazodone 50 mg tablet 50 mg PO QPM 09/10/23 11/24/24 Allergies Allergy/AdvReac Type Severity Reaction Status Date / Time No Known Drug Allergies Allergy Verified 11/24/24 18:08 [facility] Social History Smoking Status: Never smoker Do you use any of these nicotine containing products: None Second hand tobacco smoke exposure: No How often do you have a drink containing alcohol: 2-4 times a month How many standard drinks containing alcohol do you have on a typical day: 5 or 6 AUDIT-C Alcohol total score: 4 Non-prescribed substance use: denies use service: No Exam Narrative: Exam Narrative: Patient is alert and oriented very pleasant gentleman. Examination of his left index finger shows a 2 cm laceration over the dorsal lateral aspect of the PIP. This compromises epidermis and dermis and partially compromises subcutaneous tissue. As the lacerations continues distally it does become more superficial. There are no observable structures such as tendons ligaments or bone. Patient is able to flex extend against resistance. Sensation is intact. Const: Vital Signs, click to edit/add: Vital Signs - 24 hr 09/17/25 20:29 Temperature 98.2 F Pulse Rate [Pulse Oximeter] 60 Respiratory Rate 18 Blood Pressure [Ri ght Upper Arm] 169/99 H Pulse Oximetry 97 Oxygen Delivery Me thod Room Air Documenting provider has reviewed patient's vital signs: yes Course Course ED Course: Given the nature of the injury I do think we need to check for underlying bony injury and thus I do order an x-ray. Patient will be anesthetized and irrigated. Plan on sutures. Vital Signs Vital signs: Initial Vital Signs Temperature 98.2 F 09/17/25 20:29 Temperature Source Temporal Artery Scan 09/17/25 20:29 Pulse Rate 60 09/17/25 20:29 Respiratory Rate 18 09/17/25 20:29 Blood Pressure 169/99 H 09/17/25 20:29 Blood Pressure Mean 122 H 09/17/25 20:29 Blood Pressure Position Sitting 09/17/25 20:29 Pulse Oximetry 97 09/17/25 20:29 Oxygen Delivery Method Room Air 09/17/25 20:29 Vital Signs Temperature 98.2 F 09/17/25 20:29 Pulse Rate 60 09/17/25 20:29 Respiratory Rate 18 09/17/25 20:29 Blood Pressure 169/99 H 09/17/25 20:29 Pulse Oximetry 97 09/17/25 20:29 Oxygen Delivery Method Room Air 09/17/25 20:29 Temperature 98.2 F 09/17/25 20:29 Pulse Rate 60 09/17/25 20:29 Respiratory Rate 18 09/17/25 20:29 Blood Pressure 169/99 H 09/17/25 20:29 Pulse Oximetry 97 09/17/25 20:29 Oxygen Delivery Method Room Air 09/17/25 20:29 Medications Administered Medications: Discontinued Medications Generic Name Dose Route Start Last Admin Trade Name Freq PRN Reason Stop Dose Admin Lidocaine/Epinephrine 20 ml 09/17/25 23:03 09/17/25 23:25 Lidocaine 1%-Epi 1:100,000 INFILTRATI 09/17/25 23:04 20 ml ONCE ONE Administration MDM - Wound/Laceration MDM Narrative Medical decision making narrative: Procedure note: Wound was cleansed with Hibiclens. 1% lidocaine with epinephrine used for anesthesia. Wound was irrigated with normal saline. No foreign bodies were noted on exam. Three sutures of 5 0 Ethilon were placed in interrupted fashion with good wound closure. 1. Finger laceration-wound cleansed limited, tetanus is up-to-date. Patient is instructed to have sutures removed in 10 days time. Monitor signs and symptoms of infection and seek medical attention if fever drainage or increasing redness occur. Recommend ibuprofen or Tylenol as needed for discomfort. Return as needed. Cover if working. Imaging Data Left index finger x-ray: Attestation: I have reviewed the pertinent imaging results. My impression: no bony abnormality noted. Radiologist's impression: Three views of the left index finger are submitted without comparison The visualized osseous structures of the left index finger appear intact. No suspicious radiodense foreign body or free air seen within the soft tissues of the left index finger. IMPRESSION: No convincing radiographic evidence of suspicious osseous injury within the visualized left index finger. Discharge Plan Discharge Clinical Impression: Laceration Patient Disposition: Home, Self-Care Condition: Improved Additional Instructions: suture removal in 10 days seek medical attention for drainage, redness, signs of infection. Line Keep covered if working. Prescriptions: No Action amlodipine 5 mg tablet 5 mg PO DAILY trazodone 50 mg tablet 50 mg PO QPM Follow Up/Referrals: Davi Fonseca MD [Primary Care Provider, Family Practice] Stand Alone Forms: [employer] Info Instructions
[2025-09-17 23:00] VITALS: BP 154/71; PULSE 68; RESP 18; TEMP 36.7; O2SAT 98
[2025-09-17] MEDS: LIDOCAINE 1%-EPI 1:100,000 20 ML INFILTRATI (23:25)
[2025-09-18 00:29] VITALS: BP 154/78; PULSE 65; RESP 18; TEMP 36.8; O2SAT 97
[2025-09-18 00:30] VITALS: BP 154/78; PULSE 65; RESP 18; TEMP 36.8
== END 2025-09-18 00:30 | disposition home or self-care (01) ==
PROVIDERS: Emergency Provider Family Medicine; PCP Family Medicine
DX: S61.211A Laceration without foreign body of left index finger without damage to nail, initial encounter (principal); W27.0XXA Contact with workbench tool, initial encounter; Y93.L1 Activity, splitting wood
CPT/HCPCS: 12001; 73140; 99283